=== PATIENT | female | born 1960 | race Caucasian/White ===

== ENCOUNTER → 2016-10-17 | Outpatient (CLI) | payer MEDICARE, MEDICAID ==
[2016-10-17 13:55] LABS: BUN 17 mg/dL (7-18); GFR (ESTIMATED) 51 ML/MIN (59-)
[2016-10-17 15:08] LABS: HEMOGLOBIN 13.3 g/dL (12.2-16.2); LYMPH # 1.8 K/mm3 (0.7-4.5); LYMPH % 26.4 % (10-50.0)
== END ==
LOC: CARL-LAB 09:11
PROVIDERS: Internal Medicine Adolescent Medicine
DX: M19.071 Primary osteoarthritis, right ankle and foot (principal); E11.9 Type 2 diabetes mellitus without complications; E78.2 Mixed hyperlipidemia

== ENCOUNTER → 2017-08-20 | Outpatient (CLI) | payer MEDICARE, MEDICAID ==
--- NOTE | 2017-08-23 10:29 | RADIOLOGY REPORT PS360 ---
DIG MAMM-SCREEN RACHELLE W/CAD CAD Screening COMPARISON: Digital right mammogram 03/17/2016 and digital bilateral mammograms 02/11/2016 INDICATION: There is a history of breast cancer in patient's sister diagnosed at age 40 TECHNIQUE: Standard CC and MLO images were obtained. R2 CAD reviewed. FINDINGS: The breasts are closed primarily of fat with scattered fibroglandular densities. Primarily upper outer quadrants. There is a stable benign-appearing nodular density upper outer quadrant right breast noted to be a cyst on ultrasound performed in March 2016. The other smaller asymmetric density right breast described on the mammogram of 02/11/2016 is not definitely seen on today's study and probably was a small cyst which is decompressed. There are couple benign-appearing calcifications in each breast. There is faint arterial calcification noted bilaterally as well. There are no suspicious microcalcifications. IMPRESSION: Fibrofatty parenchyma with no suspicious lesion seen recommend yearly follow-up BI-RADS CATEGORY: 2_Benign RECOMMENDED FOLLOWUP: 12M 12 MONTH FOLLOW-UP (A letter has been sent to the patient regarding results of the study.)
== END ==
LOC: RAD 09:55
DX: Z12.31 Encounter for screening mammogram for malignant neoplasm of breast (principal)
CPT/HCPCS: G0202